=== PATIENT | male | born 1985 | race Caucasian/White ===

== ENCOUNTER 2017-07-31 18:20 | Emergency (ER) | payer MEDICAID, OTHER ==
[~2017-07-31] VITALS: Ht 185.4 cm; Wt 106.6 kg
[2017-07-31 18:50] VITALS: BP 135/96
[2017-07-31] MEDS ORDERED: cefTRIAXone SOD 1,000 MG VL IM ONE (22:45)
== END 2017-07-31 23:25 | disposition home or self-care (01) ==
LOC: ER 18:20
DX: L03.114 Cellulitis of left upper limb (principal)
CPT/HCPCS: 96372; 99283; J0696

== ENCOUNTER 2020-01-20 13:02 | Emergency (ER) | payer SELFPAY ==
[~2020-01-20] VITALS: Ht 188 cm; Wt 128.4 kg
[2020-01-20] MEDS ORDERED: HYDROcodone-ACET 10/325MG TAB PO ONE (14:30)
[2020-01-20 15:30] VITALS: BP 132/87
== END 2020-01-20 16:04 | disposition home or self-care (01) ==
LOC: ER 13:02
DX: S82.301A Unspecified fracture of lower end of right tibia, initial encounter for closed fracture (principal); S82.831A Other fracture of upper and lower end of right fibula, initial encounter for closed fracture; W11.XXXA Fall on and from ladder, initial encounter; Y93.39 Activity, other involving climbing, rappelling and jumping off; Y92.89 Other specified places as the place of occurrence of the external cause; Y99.8 Other external cause status
CPT/HCPCS: 29515; 73610